=== PATIENT | female | born 2000 | race American Indian/Alaskan Native ===

== ENCOUNTER 2024-10-28 21:01 | Emergency (ER) | payer MEDICAID, SELFPAY ==
[2024-10-28 21:08] VITALS: BP 144/93; PULSE 97; RESP 16; TEMP 36.9; O2SAT 99; BMI 28.3
--- NOTE | 2024-10-28 21:16 | ED.NAVMDI ---
HPI - Nausea/Vomiting/Diarrhea General Time Seen by Provider: 21:16 Date Seen: 10/28/24 Chief complaint: Nausea/Vomiting Stated complaint: Nausea, vomitting Time Seen by Provider: 10/28/24 21:15 Source: patient and RN notes reviewed Mode of arrival: ambulatory Limitations: no limitations History of Present Illness HPI Narrative: Patient is a very pleasant 24-year-old female currently menstruating otherwise healthy who comes to the emergency room for evaluation of nausea vomiting and diarrhea. Patient notes the onset of nausea yesterday but states that she was not surprised that she often gets nausea with the onset of her period. Last evening however approximately 2200 hours she had the onset of vomiting which continued through the night in association with nonbloody diarrhea. She notes that she has had a hard time keeping anything down today. She denies a fever chills or any respiratory symptoms. She does have a roommate but a roommate has been healthy. She does have discomfort across her abdomen. Her sister is concerned that she has anemia because she herself gets nausea when her hemoglobin drops. She is requesting blood work tonight. Associated nausea: Yes Related Data Home Medications ?Medication ?Instructions ?Recorded ?Confirmed No Known Home Medications 10/28/24 10/28/24 Allergies Allergy/AdvReac Type Severity Reaction Status Date / Time No Known Drug Allergies Allergy Verified 10/28/24 21:09 Review of Systems Status of ROS: Reports: 10 or more systems reviewed and unremarkable except as noted in History and below Const: Denies: fever, chills or fatigue Eyes: Denies: change in vision ENMT: Denies: throat pain, neck pain or nasal congestion Cardio: Denies: chest pain or shortness of breath with exertion Resp: Denies: shortness of breath or cough GI: Reports: abdominal pain, nausea, vomiting and diarrhea; Denies: constipation or blood in stool : Denies: painful urination Musculo: Denies: back pain or neck pain Integ/Breast: Denies: rash Neuro: Denies: headache or numbness in extremities Endo: Denies: fatigue PFSH PFSH Medical History No significant past medical history Surgical History No significant past surgical history Social History Smoking Status: Never smoker Second hand tobacco smoke exposure: No How often do you have a drink containing alcohol: never AUDIT-C Alcohol total score: 0 Non-prescribed substance use: denies use Exam Narrative: Exam Narrative: Alert and oriented. Nontoxic in appearance. Slightly pale. Face symmetrical. Lips are dry. Neck is supple. Heart with a regular rate and rhythm. Lungs are clear bilaterally. Abdomen is soft. Tenderness seems to be associated with more muscular areas. No right lower quadrant pain or rebound. No unusual edema of the lower extremities. Const: Vital Signs, click to edit/add: Vital Signs - 24 hr 10/28/24 21:08 10/28/24 21:32 10/28/24 22:37 Temperature 98.4 F 98.4 F 98.4 F Pulse Rate [Pulse Oximeter] 97 Respiratory Rate 16 Blood Pressure [Ri ght Upper Arm] 144/93 H Pulse Oximetry 99 Oxygen Delivery Me thod Room Air Documenting provider has reviewed patient's vital signs: yes Course Course ED Course: Differential diagnosis includes but is not limited to gastroenteritis, influenza, colitis, food-borne illness. I do give patient the option of oral Zofran and a trial of fluids or IV medications and she is electing to do IV meds. Will do normal saline, Zofran 4 mg, Toradol 15 mg. Will also check CBC and basic panel. Triple swab is ordered as well. Reevaluation(s) Reevaluation #1: Patient noted to have resolution of vomiting. No symptoms of diarrhea recently. Nausea is still present but is improved. Vital Signs Vital signs: Initial Vital Signs Temperature 98.4 F 10/28/24 21:08 Temperature Source Temporal Artery Scan 10/28/24 21:08 Pulse Rate 97 10/28/24 21:08 Respiratory Rate 16 10/28/24 21:08 Blood Pressure 144/93 H 10/28/24 21:08 Blood Pressure Mean 110 H 10/28/24 21:08 Blood Pressure Position Sitting 10/28/24 21:08 Pulse Oximetry 99 10/28/24 21:08 Oxygen Delivery Method Room Air 10/28/24 21:08 Vital Signs Temperature 98.4 F 10/28/24 21:08 Pulse Rate 97 10/28/24 21:08 Respiratory Rate 16 10/28/24 21:08 Blood Pressure 144/93 H 10/28/24 21:08 Pulse Oximetry 99 10/28/24 21:08 Oxygen Delivery Method Room Air 10/28/24 21:08 Temperature 98.4 F 10/28/24 22:37 Pulse Rate 97 10/28/24 21:08 Respiratory Rate 16 10/28/24 21:08 Blood Pressure 144/93 H 10/28/24 21:08 Pulse Oximetry 99 10/28/24 21:08 Oxygen Delivery Method Room Air 10/28/24 21:08 Medications Administered Medications: Discontinued Medications Generic Name Dose Route Start Last Admin Trade Name Freq PRN Reason Stop Dose Admin Sodium Chloride 1,000 mls @ 1,000 mls/hr 10/28/24 21:22 10/28/24 22:37 0.9 % Sodium Chloride 1000 Ml IV 10/28/24 22:21 Infused .Q1H BRIAN Infusion Ketorolac Tromethamine 15 mg 10/28/24 21:22 10/28/24 21:32 Ketorolac 15 Mg/Ml Inj IVP 10/28/24 21:23 15 mg ONCE ONE Administration Ondansetron HCl 4 mg 10/28/24 21:22 10/28/24 21:32 Ondansetron 2 Mg/Ml Inj IVP 10/28/24 21:23 4 mg ONCE ONE Administration MDM - Nausea/Vomiting/Diarrhea MDM Narrative Medical decision making narrative: 1. Nausea vomiting and diarrhea-improved after Zofran and Toradol and 1 L IV fluids IV. Discussed with patient this most likely represents a viral process and should be improving. However, if she has worsening symptoms such as new onset fever, increasing abdominal pain, persistent vomiting I would ask that she return to the emergency room for further evaluation. Abdominal discomfort tonight did not appear to be related to underlying abdominal symptoms but rather muscular soreness from vomiting. 2. Hypokalemia-mild. Discussed importance of intake of potassium containing foods. 3. Disposition-home at this time. Return for worsening symptoms and as needed. Lab Data Attestation: I reviewed the patient's lab results. Labs: Lab Results 10/28/24 10/28/24 Range/Units 21:00 21:35 WBC 6.38 (4.50-11.00) K/uL RBC 3.92 L (4.00-5.20) m/uL Hgb 11.5 L (12.0-16.0) gm/dL Hct 34.5 (33.0-51.0) % MCV 88 (80-100) fL MCH 29 (26-34) pg MCHC 33 (32-36) gm/dL RDW Coeff of Birdie 13.0 (11.5-15.5) % Plt Count 218 (140-440) K/uL Neut % (Auto) 55.2 (42.0-72.0) % Lymph % (Auto) 36.1 (20-44) % Rolette % (Auto) 7.1 (0.0-11.0) % Eos % (Auto) 1.1 (0.0-7.0) % Baso % (Auto) 0.5 (0.0-3.0) % Neut # (Auto) 3.53 (1.7-7.0) K/uL Lymph # (Auto) 2.30 (0.90-2.90) K/uL Rolette # (Auto) 0.50 (0.00-0.90) K/UL Eos # (Auto) 0.07 (0.00-0.50) K/uL Baso # (Auto) 0.03 (0.00-0.30) K/uL Abs Immat Gran (auto) 0.00 (0.00-0.30) K/uL Imm/Tot Granulo (auto) 0.0 % Sodium 137 (135-149) mmol/L Potassium 3.2 L (3.6-5.1) mmol/L Chloride 104 (96-114) mmol/L Carbon Dioxide 23 (20-32) mmol/L Anion Gap 10 (7-15) mEq/L BUN 10 (5-24) mg/dL Creatinine 0.5 (0.5-1.5) mg/dL Estimated Creat Clear 145.99 Estimated GFR 136 ml/min Glucose 91 (60-115) mg/dL Calcium 9.4 (8.4-10.6) mg/dL SARS-CoV-2 (PCR) Negative SARS-CoV-2 (Negative) Influenza Type A (PCR) Negative PCR FLU A (Negative) Influenza Type B (PCR) Negative PCR FLU B (Negative) RSV (PCR) Negative PCR RSV (Negative) Discharge Plan Discharge Clinical Impression: Nausea vomiting and diarrhea, Hypokalemia Patient Disposition: Home, Self-Care Condition: Improved Additional Instructions: Push fluids, not just water, include Gatorade or Powerade. Your potassium is slightly low at 3.2. Recommend increasing bananas or potato intake or other foods high in potassium. Good handwashing to prevent the spread of this illness. Return for worsening symptoms and as needed. Zofran is a medication that can help decrease vomiting and improved nausea. This medication was prescribed for you through our [employer] machine Prescriptions: No Action No Known Home Medications Follow Up/Referrals: Provider,Not a Local [Primary Care Provider] - Stand Alone Forms: [employer] Info Instructions
[2024-10-28 21:30] VITALS: O2SAT 99
[2024-10-28 21:32] VITALS: TEMP 36.9
[2024-10-28] MEDS: 0.9 % SODIUM CHLORIDE 1000 ml 1,000 ML IV (21:32)
[2024-10-28] MEDS: KETOROLAC 15 MG/ML inj IVP (21:32)
[2024-10-28] MEDS: ONDANSETRON 2 MG/ML inj 4 MG IVP (21:32)
[2024-10-28 21:44] LABS: Basophils Absolute Auto 0.03 K/uL (0.00-0.30); Basophils Percent Auto 0.5 % (0.0-3.0); Eosinophils Absolute Auto 0.07 K/uL (0.00-0.50); Eosinophils Percent Auto 1.1 % (0.0-7.0); Hematocrit 34.5 % (33.0-51.0); Hemoglobin* 11.5 gm/dL (12.0-16.0); Lymphocytes Percent Auto 36.1 % (20-44); Mean Corpuscular HGB Conc 33 gm/dL (32-36); Mean Corpuscular Hemoglobin 29 pg (26-34); Mean Corpuscular Volume 88 fL (80-100); Monocytes Percent Auto 7.1 % (0.0-11.0); Neutrophils Absolute Auto 3.53 K/uL (1.7-7.0); Neutrophils Percent Auto 55.2 % (42.0-72.0); Platelet Count* 218 K/uL (140-440); Red Blood Count 3.92 m/uL (4.00-5.20); White Blood Count* 6.38 K/uL (4.50-11.00)
[2024-10-28 21:45] LABS: Slide Review Reflex No
--- OUTSIDE RECORDS SUMMARY | 2024-10-28 21:47 | XMS_ITS | Clinical Summary ---
Author Organization [facility] Address [place], [place] [address] Care Team Providers Care State Auditor Name Role Phone Aura Shea MD Primary Care Provider [phone] Allergies No known active allergies Medications clobetasol (TEMOVATE) 0.05 % creamIndication s:Chronic eczema Apply topically to affected area(s) two times daily. 30 g 1 4 Active triamcinolone (ARISTOCORT; KENALOG) 0.1 % creamIndication s:Chronic eczema Apply topically to affected area(s) three times daily. 80 g 1 4 Active Active Problems Problem Noted Date Diagnosed Date LGSIL of cervix of undetermined significance Overview (06/10/2024): 05/2024 LSIL Plan: PAP due 05/2025 Encounters Date Type Department Care Team Description 10/28/2024 Nurse Triage [facility] [address] [place] [address] Aura Shea MD Vomiting from Last 3 Months Immunizations Name Administration Dates Next Due HPV 9 (Gardasil 9) 06/03/2024 INFLUENZA, IIV3 PF (AGE >= 6 MO) 06/03/2024 Influenza, IIV4 06/18/2023,06/25/2022,06/26/2021 Pneumococcal Conj 20-valent (Prevnar 20) 024 Tdap 06/03/2024 Social History Tobacco Use Types Packs/Day Years Used Date Smoking Tobacco: Every Day Cigarettes Smokeless Tobacco: Never Tobacco Cessation:Ready to Q uit: Not Asked; Counseling Given: Not Answered PHQ-2 Answer Date Recorded PHQ-2 TOTAL SCORE 3 05/18/2024 Social Connections Answer Date Recorded Do you often feel lonely or isolated from those around you? 4 06/03/2024 Financial Resource Strain Answer Date R ecorded Difficulty of Paying Living Expenses 2 06/03/2024 Difficulty of Paying Living Expenses 1 06/03/2024 Food Insecurity Answer Date Recorded Do you worry your food will run out before you are able to buy more? 1 06/03/2024 Transportation Needs Answer Date Record ed Does lack of transportation keep you from medica l appointments? 2 06/03/2024 Does lack of transportation keep you from work, meetings or getting things that you need? 2 06/03/2024 Housing Stability Answer Date Recorded What is your housing situation today? 1 06/03/2024 Utilities Answer Date Recorded Do you have trouble paying f or utilities (for example, heat, electricity, water, phone)? 1 06/03/2024 Comments Unknown Sex and Gender Information Value Date Recorded Sex Assigned at Not on file Legal Sex Female 7:29 PM CDT Gender Identity Not on file Sexual Orientation Not on file Obstetrics History Last Filed Vital Signs Vital Sign Reading Time Taken Comments Blood Pressure 126/79 06/03/2024 1:34 PM CDT Pulse 74 06/03/2024 1:34 PM CDT Temperature 36.9 C (98.4 F) 06/03/2024 1:34 PM CDT Respiratory Rate - - Oxygen Saturation 99% 06/03/2024 1:34 PM CDT Inhaled Oxygen Concentration - - Weight 71 kg (156 lb 9.6 oz) 06/03/2024 1:34 PM CDT Height 162.5 cm (5' 3.98) 06/03/2024 1:34 PM CD T Body Mass Index 26.9 06/03/2024 1:34 PM CDT Plan of Treatment Health Maintenance Due Date Last Done Comments HIV for age 15-65 2017 Hepatitis C screening for ag e 18-79 2020 COVID-19 vaccine series ( season) 2024 06/18/2023, 06/25/2022 HPV series for age 9-26 (2 - 3-dose series) 07/01/2024 06/03/2024 Depression screening for age 12+ 05/18/2025 05/18/20 BMI (ht and wt on same day) for age 18+ 06/03/2025 06/03/2024, 05/18/2024 Chlamydia for age 16-24 06/03/2025 06/03/2024 Pap test for age 21-65 06/03/2025 06/03/2024 Tetanus booster 06/03/2034 06/03/2024 Influenza for age 9-49 Completed , 06/18/2023, 06/25/2022, Additional history exists Pneumococcal series for age 6-49 Completed 06/03/20 Tdap Completed 06/03/2024 Procedures Procedure Name Priority Date/Time Associated Diagnosis Comments PETROLEUM REFINING FIRER THIN PREP PAP - AGES 21-24 ([employer]) Routine 06/03/2024 3:25 PM CDT Screening for cervical cancer GC CHLAMYDIA TRACH PROBE Routine 06/03/2024 12:00 AM CDT Screening for chlamydial disease from Last 3 Months or Most Recently Relevant to Health Maintenance Results * (ABNORMAL) PETROLEUM REFINING FIRER THIN PREP PAP - AGES 21-24 ([facility]) (06/03/2024 3:25 PM CDT) CLINICAL INFORMATION [facility] Comment:Normal exam LMP [facility] Comment:06/02/2024 PREV. PAP [facility] Comment:NA PREV. BX [facility] Comment:NA SOURCE PETROLEUM REFINING FIRER [facility] Comment:Cervix STATEMENT OF ADEQUACY [facility] Comment: Satisfactory for evaluation. Endocervical/transformation zone component present. GENERAL CATEGORIZATION (A) [facility] Comment:Cytology Results: Ep ithelial Cell Abnormality INTERPRETATION/RESUL T (A) [facility] Comment:Low Grade Squamous I ntraepithelial Lesion (LSIL) COMMENT [facility] Comment: This Pap test has been evaluated with computer assisted technology. Suggest clinical correlation and follow-up as clinically appropriate BEFORE AND AFTER SCHOOL DAYCARE WORKER [facility] Comment: MEN, CT(ASCP) CT Screening location: [address] [address] PATHOLOGIST [facility] Comment: Michelle Irizarry MD Board Certified in Anatomic Pathology and Clinical Pathology (electronic signature) THINPREP TIS PAP ALWAYS MESSAGE [facility] Comment: EXPLANATORY NOTE: The Pap is a screening test for cervical cancer. It is not a diagnostic test and is subject to false negative and false positive results. It is most reliable when a satisfactory sample, regularly obtained, is submitted with relevant clinical findings and history, and when the Pap result is evaluated along with historic and current clinical information. Other (Other) 06/03/2024 3:2 5 PM CDT 06/04/2024 7:51 AM CDT Aura Shea MD PATHOLOGY/CYTOLOGY Final Re sult [address] [address], [address] [address] * (ABNORMAL) GC CHLAMYDIA TRACH PROBE [[id number]] (06/03/2024 12:00 AM CDT) CHLAMYDIA TRACHOMATIS RNA, TMA, UROGENITAL DETECTED(A) NOT DETECTED [facility] Comment: If results do not correlate with clinical findings, testing using an alternate molecular target which amplifies different genetic sequences can be performed on the same sample for result confirmation within 7 days of sample receipt or per performing laboratory specimen retention policy. Alternate target testing is available; [address] (C. trachomatis) [place] [address] (N. gonorrhoeae). NEISSERIA GONORRHOEAE RNA, TMA, UROGENITAL NOT DETECTED NOT DETECTED [facility] COMMENT [facility] Comment: The analytical performance characteristics of this assay, when used to test SurePath(TM) specimens have been determined by [facility]. The modifications have not been cleared or approved by the FDA. This assay has been validated pursuant to the CLIA regulations and is used for clinical purposes. For additional information, please refer to https://education.[employer]/faq/JLF308 (This link is being provided for information/ educational purposes only.) Other VAGINAL SWAB / Unknown 06/03/2024 06/03/2024 3:09 PM CDT us Aura Shea MD MICROBIOLOGY Final Resul t [facility] [place] [address] [place] [address], [facility] [address] [place] [address] from Last 3 Months or Most Recently Relevant to Health Maintenance Insurance [facility] Care Teams State Auditor Relationship Specialty Start Date End Date Aura Shea MD [address] [place] [address] PCP - General Family Practice 05/18/24
[2024-10-28 21:50] LABS: PCR FLU A Negative PCR FLU A (Negative); PCR FLU B Negative PCR FLU B (Negative); PCR RSV Negative PCR RSV (Negative); SARS PCR* Negative SARS-CoV-2 (Negative)
[2024-10-28 21:54] LABS: Chloride* 104 mmol/L (96-114); Potassium* 3.2 mmol/L (3.6-5.1); Sodium* 137 mmol/L (135-149)
[2024-10-28 21:57] LABS: Anion Gap 10 mEq/L (7-15); Blood Urea Nitrogen* 10 mg/dL (5-24); Carbon Dioxide* 23 mmol/L (20-32); Creatinine* 0.5 mg/dL (0.5-1.5); Est. Creatinine Clearance* 145.99; Estimated Glomerular Filt Rate 136 ml/min
[2024-10-28 21:58] LABS: Calcium* 9.4 mg/dL (8.4-10.6); Glucose* 91 mg/dL (60-115)
[2024-10-28 22:37] VITALS: TEMP 36.9
[2024-10-28 22:47] VITALS: BP 109/71; PULSE 79; RESP 16; TEMP 36.9; O2SAT 99
== END 2024-10-28 22:45 | disposition home or self-care (01) ==
PROVIDERS: Emergency Provider Family Medicine
DX: R11.2 Nausea with vomiting, unspecified (principal); E87.6 Hypokalemia
CPT/HCPCS: 36415; 80048; 85025; 87631; 94761; 96374; 96375; 99283; 99284; J1885; J2405; J7030